=== PATIENT | female | born 1970 | race Caucasian/White ===

== ENCOUNTER 2017-01-07 06:46 | Day surgery (SDC) | payer OTHER ==
[~2017-01-07] VITALS: Ht 149.9 cm; Wt 80.0 kg
[~2017-01-07 06:46] MED LIST: ALBU8.5H3 IH; HYDR-762 PO; IBUP800T25 PO; ONDA4TAB35 PO
[2017-01-07 07:46] VITALS: Ht 149.9 cm; Wt 80.0 kg
[2017-01-07] MEDS ORDERED: LOSA50TA6 PO (07:55)
[2017-01-07 08:09] VITALS: BP 160/73; PULSE 92; RESP 18
[2017-01-07] MEDS ORDERED: LIDOCAINE 2% (SDV) 5 ML INJ ONE (08:20)
[2017-01-07] MEDS ORDERED: PROPOFOL 40 ML ONE (08:20)
[2017-01-07 09:10] VITALS: BP 142/70; PULSE 74; RESP 12
[2017-01-07 09:18] VITALS: BP 148/64; PULSE 76; RESP 12
--- NOTE | 2017-01-07 10:11 | GILP ---
DATE OF PROCEDURE: 01/07/2017 NAME OF PROCEDURES: Colonoscopy and biopsy. SURGEON: Kyle Burgos MD. PREOPERATIVE DIAGNOSES: 1. Rectal bleeding. 2. Chronic diarrhea. POSTOPERATIVE DIAGNOSES: 1. Colonoscopy all the way to the cecum. 2. Internal and external hemorrhoids. 3. Random biopsies were taken to rule out microscopic colitis. INDICATION FOR THE PROCEDURE: Ms. Erin Todd is a 46-year-old female patient who was complain ing of rectal bleeding. She also had history of chronic diarrhea. The patient was scheduled for co lonoscopy for further evaluation. The procedure and possible complications are well explained to the patient, she understood and conse nted to the procedure. DESCRIPTION OF PROCEDURE: Under the influence of anesthesia, the colonoscope was carefully introduc ed in the rectum and under direct vision, it was advanced all the way to the cecum. FINDINGS: The patient had internal and external hemorrhoids. No colon neoplasm was identified. Ra ndom biopsies were taken to rule out microscopic colitis. She tolerated the procedure very well and there was no complication from the procedure. At the end of the procedures, she was awake with stable vital signs and she was discharged home to the care of her family. IMPRESSION: 1. Colonoscopy all the way to the cecum. 2. Internal and external hemorrhoids. 3. Random biopsies were taken to rule out microscopic colitis. PLAN: 1. Anusol-HC 2.5% cream at bedtime. 2. Await histopathology report. 3. Next screening colonoscopy in 10 years. Dictated By: KYLE COOK/BERNARDINO Conf#: [id number] DID#: [id number]
--- NOTE | 2017-01-08 13:09 | CONS ---
DATE OF ADMISSION: 01/07/2017 DATE OF CONSULTATION: TYPE OF CONSULTATION: Preoperative gastroenterology. I thank you very much for this kind referral. HISTORY OF PRESENT ILLNESS: Ms. Erin Todd is a 46-year-old female patient who has been refer red to me for further evaluation of rectal bleeding. There is no past history of colon neoplasm. H er appetite has been good, and she is not losing any weight. 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 There is no past history of inflammatory bowel disease. The patient has history of g astritis, and she has been taking Zantac. She is on ibuprofen for arthritis. She is status post ch olecystectomy. She does not have any fever, chills or jaundice. There is no history of liver disea se. She is hypertensive. She is not a diabetic. She does not have any heart disease. She has his tory of bronchial asthma. There is no history of kidney disease. SOCIAL HISTORY: She is a nonsmoker. She does not abuse alcohol. FAMILY HISTORY: Negative for gastrointestinal tract neoplasm. ALLERGIES: THERE IS NO HISTORY OF SIGNIFICANT DRUG ALLERGY. MEDICATIONS: 1. Losartan. 2. Qvar inhaler. 3. Ventolin inhaler. 4. Zantac. 5. Ibuprofen. PHYSICAL EXAMINATION: GENERAL: She is 5 feet tall, and she weighs 164 pounds. HEART: Normal first and second heart sounds. LUNGS: Clear. ABDOMEN: Soft without any distention. Liver and spleen not palpable. There are no masses. There is no focal tenderness. Normal bowel sounds are heard. CENTRAL NERVOUS SYSTEM: Examination does not reveal any focal neurological deficit. IMPRESSION: 1. Rectal bleeding. 2. Chronic diarrhea. 3. History of gastritis. 4. The patient is on Zantac. 5. Hypertension. 6. Bronchial asthma. 7. Arthritis. 8. The patient is on ibuprofen. PLAN: 1. Continue Zantac. 2. Colonoscopy for further evaluation. Because of the obesity with a short, thick neck as well as history of bronchial asthma, she needs mo nitored anesthesia care for the procedure. The procedure and possible complications are well explained to the patient. The patient understands and consents to the procedure. I thank you once again. With warmest personal regards, Dictated By: KYLE COOK/BERNARDINO Conf#: [id number] [facility]#: [id number]
== END 2017-01-07 14:23 | disposition home or self-care (01) ==
LOC: GIL 06:46
PROVIDERS: ATTEND Internal Medicine Gastroenterology
DX: K64.8 Other hemorrhoids (principal); K64.4 Residual hemorrhoidal skin tags; I10 Essential (primary) hypertension; J45.909 Unspecified asthma, uncomplicated
CPT/HCPCS: 45380; 84703; 88305; Z7610

== ENCOUNTER 2017-03-24 21:25 | Emergency (ER) | payer OTHER ==
[~2017-03-24] VITALS: Ht 160 cm; Wt 77.5 kg
[~2017-03-24 21:25] MED LIST changes: -HYDR-762 PO; +LOSA50TA6 PO; -ONDA4TAB35 PO
[2017-03-24 21:31] VITALS: Ht 160 cm; Wt 77.5 kg
[2017-03-25] MEDS ORDERED: MAGN296S40 PO (01:46)
[2017-03-25] MEDS ORDERED: IBUP800T25 PO (01:46)
--- NOTE | 2017-03-25 01:53 | ERA ---
ER Documentation Chief Complaint Date/Time DATE: 03/25/17 TIME: 01:49 Chief Complaint BIB SELF, CC: RECTAL PAIN / DIARRHEA HPI 46-year-old female with a chief complaint of chronic hemorrhoids. Patient was seen at another ED but did not get the pain medications that she wanted. Patient has seen a windscreen fitter 2 weeks ago, had a colonoscopy which is read as unremarkable per patient's history. Patient has tried multiple creams without relief. States she has been constipated. Denies diarrhea, bleeding, strangulated/incarcerated hemorrhoids that are unable to be reduced. Better without direct pressure. Right side of the hemorrhoids hurts worse. Has no other complaints and describes no other associated manifestations. Describes the pain as 9 out of 10 and 10 out of 10 when sitting directly on them. Ghada help with translation. Nursing notes have been reviewed and are consistent with history given. ROS All systems reviewed and are negative except as per history of present illness. Medications Home Meds Active Scripts Magnesium Citrate* (Magnesium Citrate*) 296 Ml Solution, 296 ML PO ONCE, #1 BOTTLE Prov:HANNY HAMILTON PA-C 03/25/17 Ibuprofen* (Motrin*) 800 Mg Tab, 800 MG PO Q8, #30 TAB Prov:HANNY HAMILTON PA-C 03/25/17 Ibuprofen* (Motrin*) 800 Mg Tab, 800 MG PO Q6H Y for PAIN AND OR ELEVATED TEMP, #30 TAB Prov:MIKE ABDALLA MD 03/31/15 Reported Medications Losartan Potassium* (Losartan Potassium*) 50 Mg Tablet, 50 MG PO DAILY, TAB 01/07/17 Albuterol Sulfate* (Proair HFA*) 8.5 Gm Hfa.aer.ad, 8.5 GM IH Q4 Y 06/27/12 Allergies Allergies: Coded Allergies: No Known Drug Allergies (Verified Allergy, Mild, 03/31/15) PMhx/Soc History of Surgery: Yes (TUBAL LIGATION, GALLBLADDER, C SECTION X3) Anesthesia Reaction: No Hx Neurological Disorder: No Hx Respiratory Disorders: Yes (BRONCHIAL ASTHMA) Hx Cardiac Disorders: No Hx Psychiatric Problems: No Hx Miscellaneous Medical Probl: No Hx Alcohol Use: No Hx Substance Use: No Hx Tobacco Use: No Physical Exam Vitals Vital Signs Date Time Temp Pulse Resp B/P Pulse Ox O2 Delivery O2 Flow Rate FiO2 03/24/17 21:31 98.6 88 18 178/88 100 Physical Exam Const: Overweight. Mild distress. Head: Atraumatic Eyes: Normal Conjunctiva ENT: Normal External Ears, Nose and Mouth. Neck: Full range of motion..~ No meningismus. Resp: Clear to auscultation bilaterally Cardio: Regular rate and rhythm, no murmurs Abd: Soft, non tender, non distended. Normal bowel sounds Skin: No petechiae or rashes Back: No midline or flank tenderness Ext: No cyanosis, or edema Neur: Awake and alert Psych: Normal Mood and Affect External hemorrhoids. Internal hemorrhoids palpated. No visualization of thrombosed hemorrhoids. Rectal tone intact.No blood in stool or melena. Procedures/MDM Well-appearing 46-year-old female in mild distress presenting with a chief complaint of chronic hemorrhoids described in history and physical examination. Patient's been constipated. Magnesium citrate will be prescribed. I will suspicion for strangulated or incarcerated hemorrhoids. Most of the diagnosis is external and internal stage II hemorrhoids causing pain. I have advised to continue topical medications. Patient will be also given ibuprofen 800 mg upon request. Patient states she does have any money to afford any other pain medications or ibuprofen on her own. 800 mg is the only kind that works in 600 mg does not work. I will suspicion for serious bacterial illness. I have spoke with the patient regarding their condition and future management. They have verbally responded that they understand their status and treatment plan. The patients vitals are stable, and their current condition is appropriate for discharge. The patient will be given discharge instructions with return precautions. Departure Diagnosis: Primary Impression: Hemorrhoid Qualified Code: K64.9 - Hemorrhoids, unspecified hemorrhoid type Condition: Stable Patient Instructions: Treating Hemorrhoids: Surgery Additional Instructions: Follow up with your PCP within the next 1-3 days for a more thorough evaluation and a possible referral to a specialist. Return the the emergency department immediately if symptoms worsen or change. If you have any questions regarding medications, ask your pharmacist or us before you leave. If any adverse reactions occur while taking your medications, discontinue the treatment and return to the emergency department immediately. Take your medications as directed, and complete the entire course of treatment. HANNY HAMILTON PA-C Mar 25, 2017 01:53
[2017-03-25 02:12] VITALS: BP 160/78; PULSE 78; RESP 16; TEMP 98.6
== END 2017-03-25 02:28 | disposition home or self-care (01) ==
LOC: FTE 21:25
DX: K64.9 Unspecified hemorrhoids (principal); J45.909 Unspecified asthma, uncomplicated
CPT/HCPCS: 99283